=== PATIENT | male | born 1990 | race Caucasian/White ===

== ENCOUNTER 2017-08-10 18:44 | Emergency (ER) | payer OTHER ==
[2017-08-10 18:55] VITALS: BP 125/71
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
[2017-08-10] MEDS ORDERED: OXYCODONE/APAP 5/325MG PREPACK#4 BTL TAKEHOME ONE (19:22)
== END 2017-08-10 19:42 | disposition home or self-care (01) ==
DX: S42.001A Fracture of unspecified part of right clavicle, initial encounter for closed fracture (principal); V18.0XXA Pedal cycle driver injured in noncollision transport accident in nontraffic accident, initial encounter; Y99.8 Other external cause status; Y93.55 Activity, bike riding